=== PATIENT | female | born 1945 | race Caucasian/White ===

== ENCOUNTER 2020-09-03 16:52 | Emergency (ER) | payer MEDICARE, BC ==
--- NOTE | 2020-09-03 18:02 | EDM.PDOC ---
ED HPI GENERAL MEDICAL PROBLEM - General Stated Complaint: POSSIBLY BIT BY BAT Time Seen by Provider: 09/03/20 17:00 Source of Information: Reports: Patient History Limitations: Reports: No Limitations - History of Present Illness INITIAL COMMENTS - FREE TEXT/NARRATIVE: c/o bat exposure ptawoke at 5a, went to bathroom, on returning to bedroom a bat flew in one door to the bedroom and out the other door, pt got up and opened doors and windows and the bat could not be found which they think exited the house lives in an older house, bats moved in one year ago and they have seen bats in various rooms on the first and second floor as well as in the basement there has been no abnormal behavior of bats and no bat has lingered in the bedroom they are planning on calling a bat sander setter although they have not done so previously they called Gallo PARKER who told them to come to the ED pt and both come in to be seen - Related Data Allergies Allergy/AdvReac Type Severity Reaction Status Date / Time No Known Allergies Allergy Verified 09/03/20 17:22 Home Meds: Home Meds Aspirin [Aspirin EC] 325 mg PO DAILY 09/03/20 [History] Metoprolol Succinate 50 mg PO DAILY 09/03/20 [History] Triamcinolone Acetonide [Triamcinolone Acetonide 0.1% Crm] 1 applic TOP DAILY #30 gm 09/03/20 [Rx] amLODIPine Besylate [Amlodipine Besylate] 10 mg PO DAILY 09/03/20 [History] Past Medical History - Past Surgical History HEENT Surgical History: Reports: Oral Surgery Social & Family History - Family History Family Medical History: No Pertinent Family History - Caffeine Use Caffeine Use: Reports: Coffee Caffeine Use Comment: Daily ED ROS GENERAL - Review of Systems Review Of Systems: See Below Constitutional: Reports: No Symptoms HEENT: Reports: No Symptoms Respiratory: Reports: No Symptoms Cardiovascular: Reports: No Symptoms Endocrine: Reports: No Symptoms GI/Abdominal: Reports: No Symptoms : Reports: No Symptoms Musculoskeletal: Reports: No Symptoms Skin: Reports: No Symptoms Neurological: Reports: No Symptoms Psychiatric: Reports: No Symptoms Hematologic/Lymphatic: Reports: No Symptoms Immunologic: Reports: No Symptoms ED EXAM, GENERAL - Physical Exam Exam: See Below Exam Limited By: No Limitations General Appearance: Alert, WD/WN Skin Exam: Other (skin examined thoroughly other than groin, there are no breaks in skin other than a 2 x 2 mm area of excoriation of a small eczematous nodule on the back, the R anterior thigh has a 15 x 40 cm area of multiple red nodular papules d/t eczema, skin in general is dry) Course - Vital Signs Last Recorded V/S: Last Vital Signs Temp 36.6 C 09/03/20 17:10 Pulse 112 H 09/03/20 17:10 Resp 18 09/03/20 17:10 BP 170/108 H 09/03/20 17:10 Pulse Ox 97 09/03/20 17:10 - Re-Assessments/Exams Free Text/Narrative Re-Assessment/Exam: 09/03/20 18:19 low risk situation, no clinical indication for rabies vaccination, did recommend a conversation with VALORIE (it is evening now) Departure - Departure Time of Disposition: 17:55 Disposition: Home, Self-Care 01 Condition: Good Clinical Impression: Exposure to bat without known bite, Eczema - Discharge Information *PRESCRIPTION DRUG MONITORING PROGRAM REVIEWED*: Not Applicable *COPY OF PRESCRIPTION DRUG MONITORING REPORT IN PATIENT [place]: Not Applicable Prescriptions: Triamcinolone Acetonide [Triamcinolone Acetonide 0.1% Crm] 1 applic TOP DAILY #30 gm Instructions: Rabies, Eczema Additional Instructions: Call the [place] [facility] at [phone] for additional information on bat exposure and need for rabies vaccination. [facility] typically recommends rabies vaccination in higher risk exposures, which did not occur here. Call the Emergency Department tomorrow if there are additional questions. For nodular eczema, use 0.1% triamcinolone cream daily for 2 weeks. Use body oil or bath oil or olive oil in a thin layer within 5 minutes of shower or bath. Avoid soaps on the rash, which dry the skin by removing the body's natural oils. Sepsis Event Note (ED) - Evaluation Sepsis Screening Result: No Definite Risk - Focused Exam Vital Signs: Vital Signs Temp Pulse Resp BP Pulse Ox 09/03/20 17:10 36.6 C 112 H 18 170/108 H 97
== END 2020-09-03 18:15 | disposition home or self-care (01) ==
LOC: FB.ED 16:52
DX: L30.9 Dermatitis, unspecified (principal); Z20.3 Contact with and (suspected) exposure to rabies; Z79.82 Long term (current) use of aspirin
CPT/HCPCS: 99283